=== PATIENT | male | born 1940 | race Caucasian/White ===

== ENCOUNTER 2018-08-31 08:25 | Day surgery (SDC) | payer MEDICARE, OTHER, SELFPAY ==
[2018-08-31 09:00] VITALS: BP 148/79; PULSE 70; RESP 15; TEMP 36.8; O2SAT 100; BMI 36.9
[2018-08-31] MEDS: PROPARACAINE 0.5% OPHTH SOL 2 DROPS EYE-OP (09:05)
[2018-08-31] MEDS: CATARACT EYE COMPOUND (10 DROPS/SYRINGE) 3 DROPS EYE-OP (09:07)
--- NOTE | 2018-08-31 10:07 | P.OP.PRE_ITS ---
Pre-operative Note Interval Note Changes: No
--- NOTE | 2018-08-31 10:07 | PM.PREOP ---
Pre-operative Note Interval Note Changes: No
--- NOTE | 2018-08-31 10:07 | PM.OP.1 ---
Operative Date/Time/Diagnoses Pre-op diagnosis: Nuclear cataract right eye Procedure & Clinicians Procedure: Cataract Surgery Same procedure as scheduled: Yes Surgeon: Bebeto Fisher Anesthesia Type: MAC +/- and Sedation Operative Notes Procedure in detail: Patient brought to the operating suite. Tetracaine drops placed in the right eye. Marking instrument was used to stefany the vertical and horizontal meridian. Patient was prepped and draped in sterile manner. Wire lid speculum was placed in the eye. Betadine drops were placed on the eye. This was irrigated. Lidocaine jelly was placed on the eye. A paracentesis port was created with a side-port blade. 0.1 mL 1% preservative free lidocaine was injected into the anterior chamber. The anterior chamber was deepened with viscoelastic. 2.6 mm keratome was used to create a temporal clear corneal incision. Cystotome and Utrata forceps were used to create continuous tear capsulorrhexis. Balanced salt solution was used to hydro dissect the nucleus. The phacoemulsification handpiece was inserted and the nucleus was removed using the stop and chop technique. The irrigation aspiration handpiece was inserted and the remaining cortex was removed. Anterior chamber was deepened with viscoelastic. An Corey [id number] intraocular lens with a power of 22.5 was injected into the capsular bag. Irrigation aspiration handpiece was inserted and the remaining viscoelastic was removed. The lens was rotated to the 180 degree meridian. Incision was hydrated with balanced salt solution and found to be leak free with pressure with Weck-Mignon sponges. 0.1 mL Vigamox injected anterior chamber. 0.3 mL Kenalog 10 mg was injected subconjunctivally. Lid speculum was removed. The patient left the operating room in excellent condition. Complications: none Condition: stable Disposition: same day surgery
[2018-08-31] MEDS: CHONDROIDTIN/SOD HYALURONATE 1.05 ML SYRINGE INTRAOCULA (10:19)
[2018-08-31] MEDS: MOXIFLOXACIN OPHTH DROPS 3 ML BOTTLE 2 DROPS INJ (10:19)
[2018-08-31] MEDS: LIDOCAINE JELLY 2% 5 ML 1 APPLIC TOP (10:19)
[2018-08-31] MEDS: PHENYLEPHRINE/LIDOCAINE VIAL (OR) 0.2 ML EYE-OP (10:20)
[2018-08-31] MEDS: TRIAMCINOLONE 50 MG/5 ML VIAL INJ (10:20)
[2018-08-31] MEDS: TETRACAINE 0.5% OPHTH DROPS 15 ML 2 DROPS EYE-RIGHT (10:20)
[2018-08-31] MEDS: BALANCED SALT IRRIG SOLN NO.2 500 ML, EPINEPHrine 1 MG IRR (10:21)
[2018-08-31 10:45] VITALS: BP 136/77; PULSE 61; RESP 16; TEMP 36.8; O2SAT 97
== END 2018-08-31 10:48 ==
LOC: OR 08:28
PROVIDERS: PCP Internal Medicine; Visit Provider Ophthalmology
DX: H25.11 Age-related nuclear cataract, right eye (principal); Z86.711 Personal history of pulmonary embolism
CPT/HCPCS: J0171; J2250; J3010; J3301; V2787

== ENCOUNTER 2018-09-07 08:57 | Day surgery (SDC) | payer MEDICARE, OTHER, SELFPAY ==
[2018-09-07 09:36] VITALS: BP 161/78; PULSE 58; RESP 16; TEMP 36.4; O2SAT 100; BMI 36.3
[2018-09-07] MEDS: PROPARACAINE 0.5% OPHTH SOL 2 DROPS EYE-OP (09:45)
[2018-09-07] MEDS: CATARACT EYE COMPOUND (10 DROPS/SYRINGE) 3 DROPS EYE-OP (09:47)
--- NOTE | 2018-09-07 10:35 | PM.PREOP ---
Pre-operative Note Interval Note Changes: No
--- NOTE | 2018-09-07 10:36 | P.OP_ITS ---
Operative Date/Time/Diagnoses Pre-op diagnosis: Nuclear Cataract Left eye Post-op diagnosis: same Procedure & Clinicians Surgeon: Bebeto Fisher Anesthesia Type: MAC +/- and Sedation Operative Notes Procedure in detail: Patient brought to the operating suite. Tetracaine drops placed in the left eye. Patient was prepped and draped in sterile manner. Wire lid speculum was placed in the eye. Betadine drops were placed on the eye. This was irrigated. Lidocaine jelly was placed on the eye. A paracentesis port was created with a side-port blade. 0.1 mL 1% preservative free lidocaine was injected into the anterior chamber. The anterior chamber was deepened with viscoelastic. 2.6 mm keratome was used to create a temporal clear corneal incision. Cystotome and Utrata forceps were used to create continuous tear capsulorrhexis. Balanced salt solution was used to hydro dissect the nucleus. The phacoemulsification handpiece was inserted and the nucleus was removed using the stop and chop technique. The irrigation aspiration handpiece was inserted and the remaining cortex was removed. Anterior chamber was deepened with viscoelastic. An Corey ZCB00 intraocular lens with a power of 22.5 was injected into the capsular bag. Irrigation aspiration handpiece was inserted and the remaining viscoelastic was removed. Incision was hydrated with balanced salt solution and found to be leak free with pressure with Weck- Mignon sponges. 0.1 mL Vigamox injected anterior chamber. 0.3 mL Kenalog 10 mg was injected subconjunctivally. Lid speculum was removed. The patient left the operating room in excellent condition. Complications: none Condition: stable Disposition: same day surgery
--- NOTE | 2018-09-07 10:36 | P.OP.PRE_ITS ---
Pre-operative Note Interval Note Changes: No
[2018-09-07] MEDS: PHENYLEPHRINE/LIDOCAINE VIAL (OR) 0.2 ML EYE-OP (10:49)
[2018-09-07] MEDS: MOXIFLOXACIN OPHTH DROPS 3 ML BOTTLE 2 DROPS INJ (10:50)
[2018-09-07] MEDS: TRIAMCINOLONE 50 MG/5 ML VIAL INJ (10:50)
[2018-09-07] MEDS: LIDOCAINE JELLY 2% 5 ML 1 APPLIC TOP (10:51)
[2018-09-07] MEDS: CHONDROIDTIN/SOD HYALURONATE 1.05 ML SYRINGE INTRAOCULA (10:51)
[2018-09-07] MEDS: BALANCED SALT IRRIG SOLN NO.2 500 ML, EPINEPHrine 1 MG IRR (10:51)
[2018-09-07] MEDS: TETRACAINE 0.5% OPHTH DROPS 15 ML 2 DROPS EYE-LEFT (10:51)
[2018-09-07 11:00] VITALS: BP 171/71; PULSE 58; RESP 20; TEMP 36.6; O2SAT 100
== END 2018-09-07 11:20 | disposition home or self-care (01) ==
LOC: OR 08:59
PROVIDERS: PCP Internal Medicine; Visit Provider Ophthalmology
DX: H25.12 Age-related nuclear cataract, left eye (principal); Z86.711 Personal history of pulmonary embolism; Z79.01 Long term (current) use of anticoagulants
CPT/HCPCS: J0171; J2250; J3010; J3301

== ENCOUNTER → 2020-02-17 10:46 | Outpatient (CLI) | payer MEDICARE, OTHER, SELFPAY ==
[2020-02-17 12:28] LABS: Add Manual Diff / Slide Review NO; Basophils Absolute Auto 0 /uL (0-100); Basophils Percent Auto 0.7 % (0-2); Eosinophils Absolute Auto 100 /uL (0-450); Eosinophils Percent Auto 0.9 % (2-4); Hematocrit 40.4 % (41-53); Hemoglobin 14.2 g/dL (13.5-17.5); Lymphocytes Absolute Auto 1900 /uL (1100-4500); Mean Corpuscular HGB Conc 35.1 % (30-36); Mean Corpuscular Hemoglobin 32.5 PG (26-34); Mean Corpuscular Volume 92.6 fL (80-100); Monocytes Absolute Auto 600 /uL (0-900); Monocytes Percent Auto 8.1 % (3-14); Neutrophils Absolute Auto 4300 /uL (1500-7000); Neutrophils Percent Auto 62.3 % (50-75); Platelet Count 177 X10^3/uL (150-400); Red Blood Cell Count 4.36 X10^6/uL (4.5-5.9); Red Cell Distribution Width 13.8 % (11.6-14.8); White Blood Cell Count 6.9 X10^3/uL (4.5-11.0)
[2020-02-17 13:18] LABS: Aspartate Aminotransferase 32 IU/L (17-59); Blood Urea Nitrogen 13 mg/dL (9-20); Calcium 9.7 mg/dL (8.4-10.2); Carbon Dioxide 26 mmol/L (22-32); Chloride 104 mmol/L (98-107); Cholesterol 105 mg/dL (140-199); Estimated Glomerular Filt Rate > 60.0 mL/min (>60); Glucose 99 mg/dL (80-110); HDL Cholesterol 49 mg/dL (40-60); HEMOLYSIS < 15 (0-50); LDL Cholesterol Calculated 43 mg/dL (<100); Potassium 4.4 mmol/L (3.4-5.1); Sodium 139 mmol/L (137-145); Triglycerides 66 mg/dL (35-150); Uric Acid 6.8 mg/dL (3.5-8.5)
== END ==
PROVIDERS: PCP Internal Medicine; Referring Provider Internal Medicine; Visit Provider Internal Medicine
DX: M10.9 Gout, unspecified (principal); I10 Essential (primary) hypertension; E78.2 Mixed hyperlipidemia
CPT/HCPCS: 36415; 80048; 80061; 84450; 84550; 85025

== ENCOUNTER → 2020-08-21 19:06 | Outpatient (ROUT) | payer MEDICARE, OTHER, SELFPAY ==
[2020-08-21 19:24] LABS: Add Manual Diff / Slide Review NO; Basophils Absolute Auto 100 /uL (0-100); Basophils Percent Auto 1.1 % (0-2); Eosinophils Absolute Auto 100 /uL (0-450); Eosinophils Percent Auto 0.9 % (2-4); Hematocrit 41.9 % (41-53); Hemoglobin 14.4 g/dL (13.5-17.5); Lymphocytes Absolute Auto 1800 /uL (1100-4500); Lymphocytes Percent Auto 29.5 % (25-40); Mean Corpuscular HGB Conc 34.5 % (30-36); Mean Corpuscular Hemoglobin 32.2 PG (26-34); Mean Corpuscular Volume 93.5 fL (80-100); Monocytes Absolute Auto 500 /uL (0-900); Neutrophils Absolute Auto 3800 /uL (1500-7000); Neutrophils Percent Auto 60.5 % (50-75); Platelet Count 181 X10^3/uL (150-400); Red Blood Cell Count 4.48 X10^6/uL (4.5-5.9); White Blood Cell Count 6.2 X10^3/uL (4.5-11.0)
[2020-08-21 19:35] LABS: Aspartate Aminotransferase 34 IU/L (17-59); BUN Creatinine Ratio 16.8 (6-22); Blood Urea Nitrogen 16 mg/dL (9-20); Calcium 9.3 mg/dL (8.4-10.2); Carbon Dioxide 28 mmol/L (22-32); Chloride 105 mmol/L (98-107); Cholesterol 138 mg/dL (140-199); Estimated Glomerular Filt Rate > 60.0 mL/min (>60); Glucose 97 mg/dL (80-110); HDL Cholesterol 67 mg/dL (40-60); HEMOLYSIS < 15 (0-50); LDL Cholesterol Calculated 57 mg/dL (<100); Potassium 4.2 mmol/L (3.4-5.1); Sodium 138 mmol/L (137-145); Triglycerides 70 mg/dL (35-150); Uric Acid 7.1 mg/dL (3.5-8.5)
[2020-08-21 20:14] LABS: Prostate Specific Antigen < 0.064 ng/mL (0.10-4.00)
== END ==
PROVIDERS: PCP Internal Medicine; Visit Provider Internal Medicine
DX: Z85.46 Personal history of malignant neoplasm of prostate (principal); M10.9 Gout, unspecified; I10 Essential (primary) hypertension; E78.2 Mixed hyperlipidemia; I26.99 Other pulmonary embolism without acute cor pulmonale
CPT/HCPCS: 80048; 80061; 84153; 84450; 84550; 85025

== ENCOUNTER 2022-03-11 06:44 | Emergency (ER) | payer MEDICARE, OTHER, SELFPAY ==
[2022-03-11 07:00] VITALS: BP 169/83; PULSE 76; RESP 20; TEMP 36.1; O2SAT 99; BMI 34.7
--- NOTE | 2022-03-11 07:18 | ED_ITS ---
HPI - Skin/Abscess/Foreign Bdy General Chief complaint: Skin/Abscess/Foreign Body Stated complaint: Sores on legs that are infected Time Seen by Provider: 03/11/22 07:06 Source: patient Mode of arrival: Ambulatory Limitations: no limitations History of Present Illness HPI narrative: 82M non smoker on Xarelto presents with sores on both lower extremities that have been present off and on for many months. He states that they are painful and occasionally leak yellowish fluid. He denies systemic symptoms such as fever, chills, nausea or vomiting. He denies any injury, chest pain or shortness of breath. He is not lightheaded, dizzy or weak. He denies any recent travel, medication, or dietary change. He states that occasionally he gets pain in his calves when he walks. He is on Xarelto for pulmonary embo lisms. He states that he was talking with a family friend who had mention that there was in the hospital for sepsis because of leg pain and he came to be evaluated with a concern that this could possibly be what is it affecting him. Related Data Home Medications Medication Instructions Recorded Confirmed allopurinol 100 mg tablet 100 mg PO ##0 08/02/11 rivaroxaban 20 mg tablet (Xarelto) 20 mg PO QDAY ##0 01/05/17 Allergies Allergy/AdvReac Type Severity Reaction Status Date / Time No Known Allergies Allergy Unknown Verified 08/31/18 08:54 [NO KNOWN ALLERGIES] Review of Systems Review of Systems Narrative: GENERAL: Denies chills, fatigue, malaise, fever, sweats. HEENT: Denies sinus pain, ear pain, sore throat, difficulty swallowing, dizziness. RESPIRATORY: Denies dyspnea, cough, wheezing, hemoptysis, sputum. CARDIOVASCULAR: Denies chest pain, palpitations, orthopnea, edema, GASTROINTESTINAL: Denies nausea, vomiting, abdominal pain, diarrhea, constipation, melena. : Denies dysuria, frequency, incontinence, hematuria, urinary retention. MUSCULOSKELETAL: denies weakness, joint pain, or bony pain SKIN: See HPI NEUROLOGIC: Denies weakness, headache, numbness, change in speech, confusion, seizures, incoordination. PSYCHIATRIC: No concerning psychosocial issues. 12 point review of systems is negative except for those stated above Patient History Social History household members: spouse Smoking Status: Never smoker Smoking Status: Never smoker alcohol intake frequency: a few times a week Substance Use Type: does not use Exam Narrative Exam Narrative: GENERAL: [82] year old patient appears stated age. Well-developed patient, in no obvious distress, resting comfortably HEAD: Atraumatic. Normocephalic. EYES: Pupils equal round and reactive. Extraocular motions intact. No scleral icterus. No injection or drainage. ENT: Nose without bleeding, purulent drainage. Throat without erythema, tonsillar hypertrophy or exudate. Airway patent. NECK: Trachea midline. Non tender CARDIOVASCULAR: Regular rate and rhythm without murmurs, gallops, or rubs. RESPIRATORY: Clear to auscultation. Breath sounds equal bilaterally. No wheezes, rales, or rhonchi. GASTROINTESTINAL: Abdomen soft, non-tender, nondistended. EXTREMITIES: No edema or joint tenderness. BACK: Nontender without deformity or crepitance. No flank tenderness. NEURO: AOx3. SKIN: dime sized painful ulceration on lower medial anterior tibias bilaterally with minimal serous drainage and minimal surrounding erythema. No induration, fluctuance, or lymphangitis. No calf, pain, swelling, erythema. Initial Vital Signs Initial Vital Signs: Vital Signs Temperature 97 F L 03/11/22 07:00 Pulse Rate 76 03/11/22 07:00 Respiratory Rate 20 03/11/22 07:00 Blood Pressure 169/83 H 03/11/22 07:00 Pulse Oximetry 99 03/11/22 07:00 Oxygen Delivery Method 03/11/22 07:00 Course Orders Ordered: ED Orders 03/11/22 07:44 US arterial duplex LE BI Stat 03/11/22 07:51 Wound Culture and Gram Stain Stat Vital Signs Vital signs: Vital Signs - 8 hr 03/11/22 07:00 03/11/22 09:18 Temperature 97 F L Pulse Rate 76 87 Respiratory Rate 20 Blood Pressure 169/83 H 135/88 Pulse Oximetry 99 100 Oxygen Delivery Method Room Air Room Air MDM - Skin/Abscess/Foreign Bdy MDM Narrative Medical decision making narrative: Multiple etiologies for patient's symptoms considered including: [Infectious versus vascular versus other. ] Wounds have been present for some time, US ordered to evaluate for possible vascular (though likely chronic). Infectious considered, but thought unlikley given chronicity, will hold on ABX until cultures result Findings and discharge diagnosis discussed with patient/family followed by verbalization of understanding Return precautions discussed with patient/family whom verbalize understanding. Discharge Plan Departure Patient Disposition: Home Clinical Impression: Sore on leg Instructions: How to Wrap Multilayer Compression Bandage for Leg Wounds Activity Restrictions/Additional Instructions: *You have been diagnosed with [ chronic anterior leg wounds. As we discussed there is no obvious infection, also the ultrasounds looking at the blood supply is reassuring. We will wait on culture results to decide if antibiotics would be helpful or not] *What to do: *Please continue to take your regular medications as directed. [ ] New medication prescriptions sent to your pharmacy: [ ] [ ] New medication written as a paper prescription [x ] No new medications given *Please follow up with your primary care provider in 2-3 days, call for an appointment. Let them know you were seen in the Emergency Department and that we ask that you be seen in follow up. We will electronically transmit a record of today's note if your PCP is in our system *If you do not have a primary care provider please contact the [facility] Resource line at [phone]. They will ask some questions about your medical history and help get you set up with a doctor in the community. *Return to Emergency Department if you should have any new, worsening or co ncerning symptoms, such as [fever greater than 101 F, shaking chills, worsening pain, persistent vomiting or other bothersome symptoms] Prescriptions: No Action allopurinol 100 MG tablet 100 mg PO Qty: 0 rivaroxaban [Xarelto] 20 MG tablet 20 mg PO QDAY Qty: 0 Referrals: Cosme Calvo MD [Primary Care Provider] - Visit Report Forms: Patient Portal/API
--- NOTE | 2022-03-11 07:44 | DI.US.S_ITS ---
PROCEDURE: US ARTERIAL DUPLEX LE BI INDICATIONS: ULCERS TECHNIQUE: Color and pulse Doppler interrogation was performed of both lower extremity arterial systems, with image documentation. COMPARISON: None. FINDINGS: Right lower extremity: Common femoral artery: 71 cm/sec, with triphasic flow. Deep femoral artery: 43 cm/sec, with triphasic flow. Proximal superficial femoral artery: 77 cm/sec, with triphasic flow. Mid superficial femoral artery: 88 cm/sec, with biphasic flow. Distal superficial femoral artery: 62 cm/sec, with biphasic flow. Popliteal artery: 42 cm/sec, with biphasic flow. Posterior tibial artery: 40 cm/sec, with biphasic flow. Anterior tibial artery/dorsalis pedis: 30/27 cm/sec, with biphasic flow. Levi-scale imaging description: No visualized plaque. Left lower extremity: Common femoral artery: 83 cm/sec, with triphasic flow. Deep femoral artery: 59 cm/sec, with biphasic flow. Proximal superficial femoral artery: 74 cm/sec, with triphasic flow. Mid superficial femoral artery: 68 cm/sec, with triphasic flow. Distal superficial femoral artery: 53 cm/sec, with triphasic flow. Popliteal artery: 54 cm/sec, with try phase flow. Posterior tibial artery: 43 cm/sec, with biphasic flow. Anterior tibial artery/dorsalis pedis: 38/26 cm/sec, with biphasic flow. Levi-scale imaging description: No visualized plaque IMPRESSION: No hemodynamically significant stenosis. Dictated by: Vannessa Ramos M.D. on 03/11/2022 at 8:50 Approved by: Vannessa Ramos M.D. on 03/11/2022 at 8:51
[2022-03-11 09:18] VITALS: BP 135/88; PULSE 87; O2SAT 100
== END 2022-03-11 09:19 | disposition home or self-care (01) ==
PROVIDERS: Emergency Provider Emergency Medicine; PCP Internal Medicine
DX: L97.929 Non-pressure chronic ulcer of unspecified part of left lower leg with unspecified severity (principal); L97.919 Non-pressure chronic ulcer of unspecified part of right lower leg with unspecified severity; Z79.01 Long term (current) use of anticoagulants
CPT/HCPCS: 87070; 87147; 87205; 93925; 99283

== ENCOUNTER → 2022-04-02 10:19 | Outpatient (CLI) | payer MEDICARE, OTHER, SELFPAY ==
[2022-04-02 10:49] LABS: Hematocrit 39.4 % (41-53); Hemoglobin 13.2 g/dL (13.5-17.5); Mean Corpuscular HGB Conc 33.5 % (30-36); Mean Corpuscular Hemoglobin 31.7 PG (26-34); Mean Corpuscular Volume 94.6 fL (80-100); Platelet Count 150 X10^3/uL (150-400); Red Blood Cell Count 4.16 X10^6/uL (4.5-5.9); Red Cell Distribution Width 15.2 % (11.6-14.8); White Blood Cell Count 5.4 X10^3/uL (4.5-11.0)
[2022-04-02 11:13] LABS: Alanine Aminotransferase 20 IU/L (<50); Albumin 4.1 g/dL (3.5-5.0); Albumin Globulin Ratio 1.5 (1.0-2.8); Alkaline Phosphatase 71 U/L (38-126); Aspartate Aminotransferase 31 IU/L (17-59); BUN Creatinine Ratio 16.3 (6-22); Blood Urea Nitrogen 17 mg/dL (9-20); Calcium 9.1 mg/dL (8.4-10.2); Carbon Dioxide 25 mmol/L (22-32); Chloride 109 mmol/L (98-107); Cholesterol 123 mg/dL (140-199); Estimated Glomerular Filt Rate > 60 mL/min (>60); Globulin 2.8 g/dL (1.7-4.1); Glucose 110 mg/dL (80-110); HDL Cholesterol 55 mg/dL (40-60); HEMOLYSIS < 15 (0-50); LDL Cholesterol Calculated 59 mg/dL (<100); Potassium 4.3 mmol/L (3.4-5.1); Sodium 140 mmol/L (137-145); Total Protein 6.9 g/dL (6.3-8.2); Triglycerides 44 mg/dL (35-150)
[2022-04-02 11:41] LABS: Prostate Specific Antigen < 0.064 ng/mL (0.10-4.00)
[2022-04-02 11:42] LABS: TSH w/ Reflex to FT4 1.75 uIU/mL (0.47-4.68)
== END ==
PROVIDERS: PCP Internal Medicine; Referring Provider Internal Medicine; Visit Provider Internal Medicine
DX: I10 Essential (primary) hypertension (principal); Z85.46 Personal history of malignant neoplasm of prostate; E78.2 Mixed hyperlipidemia; I87.2 Venous insufficiency (chronic) (peripheral); M10.9 Gout, unspecified; Z86.711 Personal history of pulmonary embolism
CPT/HCPCS: 36415; 80053; 80061; 84153; 84443; 85027

== ENCOUNTER → 2022-04-28 10:22 | Outpatient (CLI) | payer MEDICARE, OTHER, SELFPAY ==
[2022-04-28 11:44] LABS: COVID19 -Nasal RAPID Negative (Negative)
== END ==
PROVIDERS: PCP Internal Medicine; Visit Provider Surgery
DX: Z01.812 Encounter for preprocedural laboratory examination (principal); Z20.822 Contact with and (suspected) exposure to COVID-19
CPT/HCPCS: 87635; C9803

== ENCOUNTER 2022-04-29 12:18 | Day surgery (SDC) | payer MEDICARE, OTHER, SELFPAY ==
[2022-04-29 12:29] VITALS: BP 156/83; PULSE 98; RESP 16; TEMP 37; O2SAT 100; BMI 35.1
[2022-04-29] MEDS: LACTATED RINGERS 1,000 ML 200 ML IV (12:45)
--- NOTE | 2022-04-29 13:42 | PM.HP.1 ---
History of Present Illness History of Present Illness Date Patient Seen: 04/29/22 Time Patient Seen: 13:42 Chief complaint: SDC Narrative: The patient presents for colorectal screening. Previous colonoscopy 6 years ago notable for polyps benign.. No personal or family history of colon cancer. On further history denies any recent gastrointestinal symptoms. No nausea, vomiting, abdominal pain, loss of appetite, unexplained weight loss, change in bowel habits, diarrhea, constipation, melena, hematochezia, or bright red blood per rectum. Patient History Medical History Chronic anticoagulation Do not resuscitate Essential hypertension Gout History of prostate cancer History of pulmonary embolism Mixed hyperlipidemia Primary osteoarthritis involving multiple joints Venous insufficiency Family & Social History Social History: household members spouse Tobacco & Substance use: Tobacco type pipe Smoking Status Never smoker alcohol intake frequency a few times a week Substance Use Type does not use Meds Home Medications and Allergies Home Medications Medication Instructions Recorded Confirmed Type losartan 50 mg tablet 50 mg PO DAILY #90 tabs 04/02/22 04/29/22 Rx rivaroxaban 20 mg tablet (Xarelto) 20 mg PO QDAY #90 tabs 04/02/22 04/29/22 Rx rosuvastatin 10 mg tablet 10 mg PO DAILY #90 tabs 04/02/22 04/29/22 Rx Allergies Allergy/AdvReac Type Severity Reaction Status Date / Time No Known Allergies Allergy Unknown Verified 04/29/22 12:51 [NO KNOWN ALLERGIES] Exam Vital Signs (past 8 hours): - 04/29/22 12:29 Temperature 98.6 F Pulse Rate 98 H Respiratory Rate 16 Blood Pressure 156/83 H Pulse Oximetry 100 Oxygen Delivery Method Room Air Oxygen Delivery Method Room Air Narrative Exam Narrative: General adult male alert oriented no acute distress Chest nonlabored respiration Extremities warm well perfused Assessment & Plan Assessment & Plan narrative: The patient requires colorectal screening and colonoscopy is recommended. Technical details were discussed. Risks, benefits, alternatives explained. Risks including but not limited to myocardial infarction, aspiration, bleeding, pain, missed lesion, incomplete examination, need for further radiographic studies, colonic perforation, and need for major abdominal surgery were discussed. All questions were answered to their satisfaction, and they are in agreement with this plan. Time Spent With Patient Critical Care time: I spent a total of [] minutes of critical care time on this patient's care today; this time is exclusive of procedural time.
[2022-04-29] MEDS: fentaNYL 250 MCG/5 ML INJ IV (14:01)
[2022-04-29] MEDS: MIDAZOLAM 5 MG/5 ML VIAL 8 MG IV (14:01)
--- NOTE | 2022-04-29 14:16 | PM.OP.COLON ---
Operative Date/Time/Diagnoses Date of procedure: 04/29/22 Time of procedure: 14:16 Pre-op diagnosis: Personal history of colonic polyps Post-op diagnosis: same Procedure & Clinicians Study performed: Colonoscopy Same procedure as scheduled: Yes Indications: Personal history of colonic polyps, screening colonoscopy Surgeon: Gael Powers Procedure Notes Procedure in detail: Medications: Conscious sedation using 8mg IV midazolam and 250mcg IV of fentanyl The history and physical was performed/updated and the patient is ASA class is 2. The procedure was discussed in detail with the patient. Potential risks complications including infection, bleeding, missed diagnosis, perforation, need for surgery, and were explained. Their questions were answered and informed consent was obtained. Patient was brought to the procedure room and placed standard monitoring equipment. The patient's vital signs were monitored continuously throughout the entire procedure. Prior to starting time-out was performed. The patient was placed in the left lateral recumbent position. Procedural sedation was administered. Examination began with a thorough inspection of the perianal area there was no evidence of fissures, fistulae, external hemorrhoids or cutaneous malignancy. The colonoscopy scope was then placed into the anal canal and was advanced to the cecum, which was identified by the ileocecal valve, the appendiceal orifice and the confluence of the taenia. The scope was then slowly withdrawn examining colon thoroughly in all directions, irrigating it of any residual stool. FINDINGS 1. No masses or polyps 2. Tortuous colon 3. Extensive diverticulosis 4. Internal hemorrhoids The patient tolerated the procedure well. They will be discharged once criteria are met. The prep was of fair quality. The withdrawl time was 6 minutes. The sedation time was 29 minutes. Specimen(s): none sent Complications: none Impression: Diverticulosis Post-procedure Recommendations: High fiber diet Plan for aftercare: No further colonoscopy necessary Disposition: same day surgery
[2022-04-29 14:22] VITALS: BP 125/83; PULSE 100; RESP 19; TEMP 36.2; O2SAT 97
[2022-04-29 14:27] VITALS: BP 152/93; PULSE 96; RESP 22; O2SAT 96
[2022-04-29 14:32] VITALS: BP 127/72; PULSE 90; RESP 21; O2SAT 97
[2022-04-29 14:36] VITALS: BP 142/80; PULSE 81; RESP 15; O2SAT 97
[2022-04-29 14:40] VITALS: BP 132/77; PULSE 84; RESP 15; O2SAT 98
== END 2022-04-29 15:00 | disposition home or self-care (01) ==
PROVIDERS: PCP Internal Medicine; Referring Provider Surgery; Visit Provider Surgery
PROC: 0DJD8ZZ Inspection of Lower Intestinal Tract, Via Natural or Artificial Opening Endoscopic (ICD-10-PCS; CPT 45378; principal; 2022-04-29 13:30)
DX: Z12.11 Encounter for screening for malignant neoplasm of colon (principal); Z86.010 Personal history of colon polyps; K57.30 Diverticulosis of large intestine without perforation or abscess without bleeding; K64.8 Other hemorrhoids
CPT/HCPCS: G0105; 99152; 99153; J2250; J3010

== ENCOUNTER → 2023-04-17 09:35 | Outpatient (CLI) | payer MEDICARE, OTHER, SELFPAY ==
[2023-04-17 10:18] LABS: Hematocrit 37.9 % (41-53); Hemoglobin 13.1 g/dL (13.5-17.5); Mean Corpuscular HGB Conc 34.7 % (30-36); Mean Corpuscular Hemoglobin 32.3 PG (26-34); Mean Corpuscular Volume 93.1 fL (80-100); Platelet Count 147 X10^3/uL (150-400); Red Blood Cell Count 4.07 X10^6/uL (4.5-5.9); Red Cell Distribution Width 14.2 % (11.6-14.8); White Blood Cell Count 6.6 X10^3/uL (4.5-11.0)
[2023-04-17 10:41] LABS: Alanine Aminotransferase 26 IU/L (<50); Albumin 3.7 g/dL (3.5-5.0); Albumin Globulin Ratio 1.4 (1.0-2.8); Alkaline Phosphatase 69 U/L (38-126); Aspartate Aminotransferase 30 IU/L (17-59); BUN Creatinine Ratio 16.7 (6-22); Bilirubin Total 0.9 mg/dL (0.2-1.3); Blood Urea Nitrogen 20 mg/dL (9-20); Calcium 9.1 mg/dL (8.4-10.2); Carbon Dioxide 28 mmol/L (22-32); Chloride 104 mmol/L (98-107); Cholesterol 115 mg/dL (140-199); Estimated Glomerular Filt Rate 59 mL/min (>60); Globulin 2.7 g/dL (1.7-4.1); Glucose 98 mg/dL (80-110); HDL Cholesterol 53 mg/dL (40-60); HEMOLYSIS < 15 (0-50); LDL Cholesterol Calculated 48 mg/dL (<100); Potassium 4.3 mmol/L (3.4-5.1); Sodium 136 mmol/L (137-145); Total Protein 6.4 g/dL (6.3-8.2); Triglycerides 72 mg/dL (35-150)
[2023-04-17 12:11] LABS: Prostate Specific Antigen < 0.064 ng/mL (0.10-4.00)
== END ==
PROVIDERS: PCP Internal Medicine; Referring Provider Internal Medicine; Visit Provider Internal Medicine
DX: E78.2 Mixed hyperlipidemia (principal); Z85.46 Personal history of malignant neoplasm of prostate; I10 Essential (primary) hypertension; Z79.01 Long term (current) use of anticoagulants; Z86.711 Personal history of pulmonary embolism
CPT/HCPCS: 36415; 80053; 80061; 84153; 85027

== ENCOUNTER 2023-08-03 09:58 | Emergency (ER) | payer MEDICARE, OTHER, SELFPAY ==
[2023-08-03] VITALS (10 sets, daily range): BP systolic 130–158; BP diastolic 62–80; PULSE 68–84; RESP 14–24; TEMP 36.6; O2SAT 96–99; BMI 35.1
--- NOTE | 2023-08-03 10:36 | DI.RAD.S_ITS ---
PROCEDURE: XR CHEST 1V INDICATIONS: chest pain TECHNIQUE: One view of the chest was acquired. COMPARISON: None. FINDINGS: Surgical changes and devices: None. Lungs and pleura: Low lung volumes. No dense consolidation or pleural effusion. Prominent appearance of the right hilum. Mediastinum: Normal heart size Bones and chest wall: Degenerative changes. IMPRESSION: Limited single view study. No acute abnormality. Prominent appearance of the right hilum, not well evaluated on radiography due to rotation, possibly overlapping vessels. Dictated by: Mitchell Palomino M.D. on 08/03/2023 at 11:11 Approved by: Mitchell Palomino M.D. on 08/03/2023 at 11:14
[2023-08-03 11:09] LABS: INR 2.7 (0.9-1.3); Prothrombin Time 30.8 SECONDS (10.1-12.7)
[2023-08-03 11:12] LABS: PTT Partial Thromboplastin Tim 49 SECONDS (26-36)
[2023-08-03 11:13] LABS: Add Manual Diff / Slide Review NO; Basophils Absolute Auto 100 /uL (0-100); Eosinophils Absolute Auto 0 /uL (0-450); Eosinophils Percent Auto 0.7 % (2-4); Hematocrit 41.3 % (41-53); Hemoglobin 14.3 g/dL (13.5-17.5); Lymphocytes Absolute Auto 1400 /uL (1100-4500); Lymphocytes Percent Auto 21.9 % (25-40); Mean Corpuscular HGB Conc 34.6 % (30-36); Mean Corpuscular Hemoglobin 32.3 PG (26-34); Mean Corpuscular Volume 93.4 fL (80-100); Monocytes Absolute Auto 600 /uL (0-900); Monocytes Percent Auto 9.9 % (3-14); Neutrophils Absolute Auto 4100 /uL (1500-7000); Neutrophils Percent Auto 66.5 % (50-75); Platelet Count 174 X10^3/uL (150-400); Red Blood Cell Count 4.42 X10^6/uL (4.5-5.9); Red Cell Distribution Width 14.7 % (11.6-14.8); White Blood Cell Count 6.2 X10^3/uL (4.5-11.0)
[2023-08-03 11:14] LABS: Alanine Aminotransferase 33 IU/L (<50); Albumin 4.1 g/dL (3.5-5.0); Albumin Globulin Ratio 1.3 (1.0-2.8); Alkaline Phosphatase 56 U/L (38-126); Aspartate Aminotransferase 39 IU/L (17-59); BUN Creatinine Ratio 19.1 (6-22); Bilirubin Total 0.7 mg/dL (0.2-1.3); Blood Urea Nitrogen 21 mg/dL (9-20); Carbon Dioxide 28 mmol/L (22-32); Chloride 105 mmol/L (98-107); Creatine Kinase 327 U/L (55-170); Estimated Glomerular Filt Rate > 60 mL/min (>60); Globulin 3.2 g/dL (1.7-4.1); Glucose 117 mg/dL (80-110); HEMOLYSIS 22 (0-50); Lipase 127 U/L (23-300); Magnesium 1.8 mg/dL (1.6-2.3); Potassium 4.1 mmol/L (3.4-5.1); Sodium 138 mmol/L (137-145); Total Protein 7.3 g/dL (6.3-8.2)
[2023-08-03 11:25] LABS: Troponin I < 0.012 ng/mL (0.01-0.034)
--- NOTE | 2023-08-03 12:40 | PC.NURSE ---
Patient denies having any symptoms of chest pain, shortness of breath, lightheaded or dizziness, palpations. He states he got a new watch a week ago which has been telling him he is in atrial fibrillation. Pt has not had any symptoms and states he is not sure how long he has actually been in afib.
--- NOTE | 2023-08-03 12:53 | PC.NURSE ---
Patient reports having confusion today while at work on the [employer] walking between offices. Pt felt dizzy, nauseated and sweating. He thought his blood sugar might be low and went to get his lunch out and found himself opening the broom closet at work instead of going to the fridge. Pt told his coworker to keep an eye on him, and while eating patient passed out and had a LOC for aproximately 45seconds per EMS. Pt had a similar event over a year ago while living in the . He got up to urinate at night and fell over, passing out. He did go to the ER by ambulance at that time and the tests did not come up with anything. Since then he has moved here for the past 3 months and needs to find another primary care provider.
--- NOTE | 2023-08-03 13:23 | ED_ITS ---
HPI - Arrhythmia/Palpitations General Chief Complaint: Arrhythmia/Palpitations Stated Complaint: doc sent for ekg Time Seen by Provider: 08/03/23 13:23 Source: patient Mode of arrival: Ambulatory Limitations: no limitations History of Present Illness HPI narrative: 83-year-old male chronically anticoagulants Xarelto for prior pulmonary emboli, hypertension dyslipidemia who presents with concern for atrial fibrillation. Patient states he got an Apple watch 10 days ago it has been telling him regularly and with increasing frequency that he has atrial fibrillation. 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 Patient presents today because it has been increasingly frequent. He states he has no other symptoms, he has no sense of palpitations, no chest pain, no shortness of breath, no lightheadedness or passing out, no nausea no vomiting, no swelling in extremities no other GI or urinary symptoms. He states he has been on Xarelto for about 8-10 years after having a pulmonary emboli. He states he takes it regularly, he takes a statin and losartan daily. Patient states he is had prior appendectomy and cholecystectomy but no other cardiac interventions or surgeries. He is never been told he had any cardiac arrhythmias. No known drug allergies. No tobacco, alcohol or illicit. His primary care is Dr. Calvo. Related Data Previous Rx's Medication Instructions Recorded losartan 50 mg tablet 50 mg PO DAILY #90 tabs 04/16/23 rivaroxaban 20 mg tablet (Xarelto) 20 mg PO QDAY #90 tabs 04/16/23 rosuvastatin 10 mg tablet 10 mg PO DAILY #90 tabs 04/16/23 metoprolol tartrate 25 mg tablet 12.5 mg (1/2 x 25 mg) PO BID #30 08/03/23 tabs Allergies Allergy/AdvReac Type Severity Reaction Status Date / Time No Known Allergies Allergy Unknown Verified 08/03/23 10:35 [NO KNOWN ALLERGIES] Review of Systems Review of Systems ROS Unobtainable: All systems reviewed & are unremarkable except as noted in HPI and below Patient History Medical History Primary osteoarthritis involving multiple joints Do not resuscitate History of prostate cancer Gout Mixed hyperlipidemia Essential hypertension Chronic anticoagulation History of pulmonary embolism Venous insufficiency Social History details: (Armida Romero 01/2023), 2 children household members: spouse Smoking Status: Never smoker Smoking Status: Never smoker alcohol intake frequency: a few times a week Substance Use Type: does not use Exam Narrative Exam Narrative: GENERAL: Alert and oriented x three, well-nourished male in no acute distress. HEENT: Head normocephalic, atraumatic, EOMI, pupils reactive, face symmetric, moist mucous membranes NECK: Supple, full range of motion CARDIOVASCULAR: Irregularly irregular rate and rhythm without murmurs, rubs or gallops. No JVD. No edema bilateral lower extremities. RESPIRATORY: Breath sounds equal bilaterally, no wheezes rales or rhonchi. ABDOMEN: Soft, nontender. Normoactive bowel sounds all 4 quadrants. No guarding or rebound, rigidity, no mass : No CVA tenderness EXTREMITIES: Normal range of motion, no clubbing or edema. Neurovascularly intact NEUROLOGICAL: Cranial nerves II through XII grossly intact. Moving all extremities SKIN: Warm, dry, no petechiae, no rashes or lesions. Initial Vital Signs Initial Vital Signs: Vital Signs Temperature 97.9 F 08/03/23 10:32 Pulse Rate 68 08/03/23 10:32 Respiratory Rate 14 08/03/23 10:32 Blood Pressure 146/74 H 08/03/23 10:32 Pulse Oximetry 99 08/03/23 10:32 Oxygen Delivery Method Room Air 08/03/23 10:32 Course Orders Ordered: ED Orders 08/03/23 10:36 XR chest 1V Stat 08/03/23 10:40 Complete Blood Count AUTO DIFF Stat Comprehensive Metabolic Panel Stat Lipase Stat Magnesium Stat PTT Partial Thromboplastin Amarjit Stat Prothrombin Time INR Stat Troponin & CK Cardiac Panel Stat 08/03/23 10:59 EKG-12 Lead Stat Discontinued Medications Aspirin (Aspirin 81 Mg Chew Tab) 324 mg PO NOW ONE Stop: 08/03/23 10:36 Last Admin: 08/03/23 10:46 Dose: Not Given Documented By: AMV Vital Signs Vital signs: Vital Signs - 8 hr 08/03/23 12:17 08/03/23 12:18 08/03/23 12:18 Pulse Rate 83 84 Respiratory Rate 21 24 Blood Pressure 158/80 H Pulse Oximetry 96 97 Oxygen Delivery Method 08/03/23 12:30 08/03/23 12:30 08/03/23 12:45 Pulse Rate 80 76 Respiratory Rate 23 22 Blood Pressure 136/75 Pulse Oximetry 98 98 Oxygen Delivery Method 08/03/23 12:45 08/03/23 13:00 08/03/23 13:00 Pulse Rate 77 Respiratory Rate 21 Blood Pressure 133/71 134/74 Pulse Oximetry 97 Oxygen Delivery Method 08/03/23 13:15 08/03/23 13:15 08/03/23 13:30 Pulse Rate 73 76 Respiratory Rate 23 22 Blood Pressure 142/67 H Pulse Oximetry 99 97 Oxygen Delivery Method 08/03/23 13:30 08/03/23 13:45 08/03/23 13:45 Pulse Rate 82 Respiratory Rate 23 Blood Pressure 136/66 130/62 Pulse Oximetry 97 Oxygen Delivery Method Room Air 08/03/23 14:00 08/03/23 14:00 Pulse Rate 83 Respiratory Rate 23 Blood Pressure 149/72 H Pulse Oximetry 98 Oxygen Delivery Method Room Air MDM - Arrhythmia/Palpitations Lab Data 08/03/23 10:40 08/03/23 10:40 Labs: Lab Results 08/03/23 Range/Units 10:40 WBC 6.2 (4.5-11.0) X10^3/uL RBC 4.42 L (4.5-5.9) X10^6/uL Hgb 14.3 (13.5-17.5) g/dL Hct 41.3 (41-53) % MCV 93.4 (80-100) fL MCH 32.3 (26-34) PG MCHC 34.6 (30-36) % RDW 14.7 (11.6-14.8) % Plt Count 174 (150-400) X10^3/uL Neut % (Auto) 66.5 (50-75) % Lymph % (Auto) 21.9 L (25-40) % Mellette % (Auto) 9.9 (3-14) % Eos % (Auto) 0.7 L (2-4) % Baso % (Auto) 1.0 (0-2) % Neut # (Auto) 4100 (2179-4084) /uL Lymph # (Auto) 1400 (1352-1343) /uL Mellette # (Auto) 600 (0-900) /uL Eos # (Auto) 0 (0-450) /uL Baso # (Auto) 100 (0-100) /uL PT 30.8 H (10.1-12.7) SECONDS INR 2.7 H (0.9-1.3) APTT 49 H (26-36) SECONDS Sodium 138 (137-145) mmol/L Potassium 4.1 (3.4-5.1) mmol/L Chloride 105 (98-107) mmol/L Carbon Dioxide 28 (22-32) mmol/L BUN 21 H (9-20) mg/dL Creatinine 1.10 (0.66-1.25) mg/dL Estimated GFR > 60 (>60) mL/min BUN/Creatinine Ratio 19.1 (6-22) Glucose 117 H (80-110) mg/dL Calcium 10.0 (8.4-10.2) mg/dL Magnesium 1.8 (1.6-2.3) mg/dL Total Bilirubin 0.7 (0.2-1.3) mg/dL AST 39 (17-59) IU/L ALT 33 (<50) IU/L Alkaline Phosphatase 56 (38-126) U/L Total Creatine Kinase 327 H (55-170) U/L Troponin I < 0.012 (0.01-0.034) ng/mL Total Protein 7.3 (6.3-8.2) g/dL Albumin 4.1 (3.5-5.0) g/dL Globulin 3.2 (1.7-4.1) g/dL Albumin/Globulin Ratio 1.3 (1.0-2.8) Lipase 127 (23-300) U/L Imaging Data Chest x-ray: Radiologist's Impresson: [address] [address] XRay Report Signed Patient: Calvin Saxena MR#: [id number] : 1940 Acct:[id number] Age/Sex: 83 / M Date of Service: 08/03/23 Loc: ED Accession Number: [id number] Procedure: XR chest 1V Ordering Provider: Amy Jolley D.O. PROCEDURE: XR CHEST 1V INDICATIONS: chest pain TECHNIQUE: One view of the chest was acquired. COMPARISON: None. FINDINGS: Surgical changes and devices: None. Lungs and pleura: Low lung volumes. No dense consolidation or pleural effusion. Prominent appearance of the right hilum. Mediastinum: Normal heart size Bones and chest wall: Degenerative changes. IMPRESSION: Limited single view study. No acute abnormality. Prominent appearance of the right hilum, not well evaluated on radiography due to rotation, possibly overlapping vessels. Dictated by: Mitchell Palomino M.D. on 08/03/2023 at 11:11 Approved by: Mitchell Palomino M.D. on 08/03/2023 at 11:14 ECG Data Attestation: I personally reviewed and interpreted this ECG as follows: Prior ECG tracings: not available for review Interpretation: AFib rate of 74 QRS of 140 QTC of 416, right bundle-branch block. Patient does not have priors for comparison. MDM Narrative Medical decision making narrative: 83-year-old male who does not appear to be in atrial fibrillation he is rate controlled with no significant vital sign changes otherwise. CBC is appropriate, creatinine electrolytes are appropriate CK is 327 LFTs are negative troponins negative chest x-ray is negative. Patient's INR is 2.7 he is appropriately anticoagulated on Xarelto chronically for pulmonary emboli. States it has been 10 years discussed could do cardioversion but he is rate controlled asymptomatic when hold off and have him just follow-up. We will give him a prescription for beta-katelyn and Malachi develops some tachycardia but felt appropriate for discharge home to follow up with primary care or Cardiology at his preference. Patient feels very comfortable with this plan and agrees to hold off on any interventions at this time. Discharge Plan Departure Patient Disposition: Home Clinical Impression: Atrial fibrillation Instructions: DI for Atrial Fibrillation Activity Restrictions/Additional Instructions: You are in atrial fibrillation today you have been rate controlled throughout your stay. Follow-up with your primary care if you prefer Cardiology contact is also included. Continue your home medications as prescribed including your Xarelto this is protective against stroke. Prescription for a low-dose beta-katelyn is included you can start this if you start to develop tachycardia or faster heart rate. You are currently rate controlled and do not have to take this medication. Prescription sent to [facility] in [place] Please return for new or worsening chest pain, shortness of breath, lightheadedness or passing out, fast heart rate, if you are having new palpitations, new swelling of extremities, nausea, vomiting diaphoresis or other new or concerning changes. Prescriptions: New metoprolol tartrate 25 mg tablet 12.5 mg PO BID Qty: 30 0RF No Action losartan 50 mg tablet 50 mg PO DAILY Qty: 90 3RF Xarelto 20 mg tablet 20 mg PO QDAY Qty: 90 3RF rosuvastatin 10 mg tablet 10 mg PO DAILY Qty: 90 3RF Referrals: Cosme Calvo MD [Primary Care Provider] - Grzegorz Cesar MD [Physician] - Stand Alone Forms: Patient Portal/API
== END 2023-08-03 14:33 | disposition home or self-care (01) ==
PROVIDERS: Emergency Provider Emergency Medicine; PCP Internal Medicine
DX: I48.91 Unspecified atrial fibrillation (principal); Z86.711 Personal history of pulmonary embolism; Z79.01 Long term (current) use of anticoagulants
CPT/HCPCS: 36415; 71045; 80053; 82550; 83690; 83735; 84484; 85025; 85610; 85730; 93005; 99283; 99284

== ENCOUNTER → 2023-08-26 06:36 | Outpatient (CLI) | payer MEDICARE, OTHER, SELFPAY ==
--- NOTE | 2023-08-26 06:36 | DI.ECHO.S_ITS ---
[facility] +---------+ : : [address] : : : : [id number] : : : : Phone: [phone]+ Echocardiogram Report + + :Name: SHARONA OSBORN Study Date: 08/26/2023 Height: 69 in : :[facility] ReadingLocation: Weight: 240 lb : : Gender: Male BSA: 2.2 m2 : :: 1940 Age: 83 yrs BP: 159/89 mmHg: :Reason For Study: ATRIAL FIBRILLATION : :Ordering Physician: NATA, : :REBA Performed By: Jerilyn العلي : :Referring: REBA PEACE : + + Interpretation Summary The ejection fraction is estimated to be 60-65%. Diastolic function could not be accurately assessed due to atrial fibrillation. The left atrium is moderately dilated. The right ventricle is mildly dilated. The right ventricular systolic function is normal. There is mild to moderate mitral regurgitation. There is mild aortic regurgitation. There is mild tricuspid regurgitation. The right ventricular systolic pressure is estimated to be at least 33 mmHg based on an estimated right atrial pressure of 3 mm Hg. Compared to the prior study dated 12/08/2012, no significant change. Procedure: A two-dimensional transthoracic echocardiogram with color flow and Doppler was performed. The study quality was technically adequate. Comparison is made with the echocardiogram of 12/08/2012. The patient was in atrial fibrillation with heart rates between 68-90 bpm during the exam. Left Ventricle: The left ventricle is normal in size and wall thickness. The ejection fraction is estimated to be 60-65%. Diastolic function could not be accurately assessed due to atrial fibrillation. Right Ventricle: The right ventricle is mildly dilated. The right ventricular systolic function is normal. Atria: The left atrium is moderately dilated. Right atrial size is normal. There is no Doppler evidence for an interatrial shunt. Mitral Valve: The mitral valve leaflets appear borderline thickened, but open well. There is mild to moderate mitral regurgitation. Aortic Valve: The aortic valve is trileaflet. The aortic valve opens well. The aortic valve is mildly calcified. There is no aortic valve stenosis. There is mild aortic regurgitation. Tricuspid Valve: The tricuspid valve is normal in structure and function. There is mild tricuspid regurgitation. The right ventricular systolic pressure is estimated to be at least 33 mmHg based on an estimated right atrial pressure of 3 mm Hg. Pulmonic Valve: The pulmonic valve leaflets are thin and pliable; valve motion is normal. There is trace pulmonic regurgitation. Great Vessels: The aortic root is normal size. The dimensions of the ascending aorta are normal. The IVC is of normal diameter and collapses greater than 50% with a sniff. This suggests a low right atrial pressure of 3 mm Hg. Pericardium/ Pleura There is no pericardial effusion. There is no pleural effusion. MMode/2D Measurements & Calculations LVIDd: 5.0 cm LVOT diam: 2.2 cm LVIDs: 3.4 cm Ao root diam: 3.5 cm FS: 32.5 % asc Aorta Diam: 2.9 cm EPSS: 0.79 cm Ao Arch Diam (Prox Trans): 3.1 cm IVSd: 0.82 cm LVPWd: 1.0 cm LV pinto. diameter/BSA (cm/m^2): 2.2 LV sys. diameter/BSA (cm/m^2): 1.5 LA A2 area: 25.4 cm2 RA long axis: 5.7 cm LA A4 area: 24.6 cm2 RA area: 19.5 cm2 LA length (vol): 6.0 cm RA vol: 56.7 ml LA vol: 89.3 ml RA : 25.4 ml/m2 LA vol index: 40.0 ml/m2 IVC diam: 2.0 cm RVD1 (basal): 4.2 cm TAPSE: 1.7 cm Doppler Measurements & Calculations Ao V2 max: 174.5 cm/sec LVOT Max Winston: 76.9 cm/sec Ao V2 mean: 116.7 cm/sec LV V1 max P.4 mmHg Ao max P.2 mmHg LV V1 VTI: 17.2 cm Ao mean P.4 mmHg PRASAD(I,D): 1.9 cm2 Ao V2 VTI: 33.5 cm PRASAD(V,D): 1.6 cm2 sev ratio: 0.51 PRASAD indexed to BSA (cm^2/m^2): 0.85 AI P1/2t: 675.5 msec AI dec slope: 180.4 cm/sec2 MV E max winston: 95.2 cm/sec TR max winston: 273.7 cm/sec MV A max winston: 0.71 cm/sec TR max P.0 mmHg MV E/A: 133.5 PA V2 max: 105.8 cm/sec Med Peak E' Winston: 8.0 cm/sec PA V2 mean: 72.2 cm/sec E/E' med: 12.0 PA mean P.3 mmHg Lat Peak E' Winston: 12.4 cm/sec PA pr(Accel): 41.3 mmHg E/E' lat: 7.7 E/e' average: 9.8 MV dec time: 0.24 sec SV(LVOT): 63.5 ml Reading Physician:11:39 AM
== END ==
PROVIDERS: PCP Internal Medicine; Referring Provider Internal Medicine; Visit Provider Internal Medicine
DX: I48.20 Chronic atrial fibrillation, unspecified (principal); I51.7 Cardiomegaly; I08.3 Combined rheumatic disorders of mitral, aortic and tricuspid valves
CPT/HCPCS: 93306

== ENCOUNTER → 2023-09-30 08:07 | Outpatient (CLI) | payer MEDICARE, OTHER, SELFPAY ==
[2023-09-30 09:06] LABS: Cholesterol 121 mg/dL (140-199); HDL Cholesterol 61 mg/dL (40-60); LDL Cholesterol Calculated 50 mg/dL (<100); Triglycerides 48 mg/dL (35-150)
[2023-09-30 09:39] LABS: Thyroid Stimulating Hormone 2.03 uIU/mL (0.47-4.68)
== END ==
LOC: LAB 08:08
PROVIDERS: PCP Internal Medicine; Referring Provider Internal Medicine; Visit Provider Internal Medicine
DX: E78.2 Mixed hyperlipidemia (principal); I48.20 Chronic atrial fibrillation, unspecified
CPT/HCPCS: 36415; 80061; 84443

== ENCOUNTER → 2024-04-18 14:11 | Outpatient (CLI) | payer MEDICARE, OTHER, SELFPAY ==
[2024-04-18 14:54] LABS: Hematocrit 39.3 % (41-53); Hemoglobin 13.3 g/dL (13.5-17.5); Mean Corpuscular HGB Conc 33.9 % (30-36); Mean Corpuscular Hemoglobin 32.5 PG (26-34); Mean Corpuscular Volume 95.6 fL (80-100); Platelet Count 159 X10^3/uL (150-400); Red Blood Cell Count 4.11 X10^6/uL (4.5-5.9); Red Cell Distribution Width 14.1 % (11.6-14.8); White Blood Cell Count 7.1 X10^3/uL (4.5-11.0)
[2024-04-18 14:58] LABS: Alanine Aminotransferase 25 IU/L (<50); Albumin Globulin Ratio 1.7 (1.0-2.8); Alkaline Phosphatase 72 U/L (38-126); Aspartate Aminotransferase 31 IU/L (17-59); BUN Creatinine Ratio 22.8 (6-22); Bilirubin Total 0.7 mg/dL (0.2-1.3); Blood Urea Nitrogen 29 mg/dL (9-20); Calcium 9.4 mg/dL (8.4-10.2); Carbon Dioxide 24 mmol/L (22-32); Chloride 109 mmol/L (98-107); Estimated Glomerular Filt Rate 55 mL/min (>60); Globulin 2.3 g/dL (1.7-4.1); Glucose 94 mg/dL (80-110); HEMOLYSIS < 15 (0-50); Potassium 4.7 mmol/L (3.4-5.1); Sodium 140 mmol/L (137-145); Total Protein 6.3 g/dL (6.3-8.2)
== END ==
PROVIDERS: PCP Internal Medicine; Referring Provider Internal Medicine; Visit Provider Internal Medicine
DX: I48.20 Chronic atrial fibrillation, unspecified (principal)
CPT/HCPCS: 36415; 80053; 85027

== ENCOUNTER → 2024-07-13 08:06 | Outpatient (CLI) | payer MEDICARE, OTHER, SELFPAY ==
--- NOTE | 2024-07-13 08:37 | DI.RAD.S_ITS ---
PROCEDURE: XR KUB INDICATIONS: Hematuria TECHNIQUE: One view of the abdomen acquired. COMPARISON: None. FINDINGS: Surgical changes and devices: Surgical clips projecting over the pelvis and right upper quadrant. Bowel: Bowel gas pattern is normal. Soft tissues: Serpiginous calcifications in the left upper quadrant may represent calcified splenic artery. No suspicious abdominal calcifications. Visualized solid organ contours appear normal in size. Bones: No suspicious bony lesions. IMPRESSION: 1. No definite renal stones are seen. Consider CT for further evaluation. 2. Serpiginous calcifications in the left upper quadrant, may represent calcified splenic artery. Dictated by: Malachi Miller M.D. on 07/13/2024 at 17:53 Approved by: Malachi Miller M.D. on 07/13/2024 at 17:54
== END ==
PROVIDERS: PCP Internal Medicine; Referring Provider Nurse Practitioner Family; Visit Provider Nurse Practitioner Family
DX: R30.0 Dysuria (principal); R31.9 Hematuria, unspecified; R93.5 Abnormal findings on diagnostic imaging of other abdominal regions, including retroperitoneum
CPT/HCPCS: 74018; 87086

== ENCOUNTER → 2024-10-10 14:17 | Outpatient (CLI) | payer MEDICARE, OTHER, SELFPAY ==
--- NOTE | 2024-10-10 14:21 | DI.RAD.S_ITS ---
PROCEDURE: XR CHEST 2V INDICATIONS: dyspnea TECHNIQUE: 2 views of the chest were acquired. COMPARISON: [facility], CR, XR CHEST 1V, 08/03/2023, 10:39. FINDINGS: Surgical changes and devices: None. Lungs and pleura: Lungs are clear. No pleural effusions or pneumothorax. Mediastinum: Mediastinal contours are normal. Heart size is normal. Bones and chest wall: No suspicious bony abnormalities. Soft tissues appear unremarkable. IMPRESSION: No acute pulmonary process. Dictated by: Vannessa Ramos M.D. on 10/10/2024 at 16:11 Approved by: Vannessa Ramos M.D. on 10/10/2024 at 16:11
[2024-10-10 15:07] LABS: Hematocrit 38.7 % (41-53); Hemoglobin 13.1 g/dL (13.5-17.5); Mean Corpuscular HGB Conc 33.7 % (30-36); Mean Corpuscular Hemoglobin 32.5 PG (26-34); Mean Corpuscular Volume 96.4 fL (80-100); Platelet Count 161 X10^3/uL (150-400); Red Blood Cell Count 4.02 X10^6/uL (4.5-5.9); Red Cell Distribution Width 14.7 % (11.6-14.8); White Blood Cell Count 7.2 X10^3/uL (4.5-11.0)
[2024-10-10 15:25] LABS: Alanine Aminotransferase 29 IU/L (<50); Albumin 4.1 g/dL (3.5-5.0); Albumin Globulin Ratio 1.8 (1.0-2.8); Alkaline Phosphatase 73 U/L (38-126); Aspartate Aminotransferase 34 IU/L (17-59); BUN Creatinine Ratio 19.5 (6-22); Bilirubin Total 0.7 mg/dL (0.2-1.3); Blood Urea Nitrogen 26 mg/dL (9-20); Calcium 9.8 mg/dL (8.4-10.2); Carbon Dioxide 24 mmol/L (22-32); Chloride 109 mmol/L (98-107); Cholesterol 109 mg/dL (140-199); Estimated Glomerular Filt Rate 52 mL/min (>60); Globulin 2.3 g/dL (1.7-4.1); Glucose 99 mg/dL (80-110); HDL Cholesterol 60 mg/dL (40-60); HEMOLYSIS < 15 (0-50); LDL Cholesterol Calculated 35 mg/dL (<100); Potassium 4.3 mmol/L (3.4-5.1); Sodium 140 mmol/L (137-145); Total Protein 6.4 g/dL (6.3-8.2); Triglycerides 69 mg/dL (35-150)
[2024-10-10 15:55] LABS: TSH w/ Reflex to FT4 2.02 uIU/mL (0.47-4.68)
[2024-10-10 16:00] LABS: Prostate Specific Antigen < 0.064 ng/mL (0.10-4.00)
== END ==
LOC: LAB 14:18 → RAD 14:21
PROVIDERS: PCP Internal Medicine; Referring Provider Internal Medicine; Visit Provider Internal Medicine
DX: I48.20 Chronic atrial fibrillation, unspecified (principal); E78.2 Mixed hyperlipidemia; Z85.46 Personal history of malignant neoplasm of prostate
CPT/HCPCS: 36415; 71046; 80053; 80061; 84153; 84443; 85027

== ENCOUNTER → 2024-11-12 08:55 | Outpatient (CLI) | payer MEDICARE, OTHER, SELFPAY ==
[2024-11-12 10:21] LABS: BUN Creatinine Ratio 28.1 (6-22); Blood Urea Nitrogen 38 mg/dL (9-20); Calcium 10.2 mg/dL (8.4-10.2); Carbon Dioxide 26 mmol/L (22-32); Chloride 108 mmol/L (98-107); Estimated Glomerular Filt Rate 51 mL/min (>60); Glucose 98 mg/dL (80-110); Sodium 141 mmol/L (137-145)
[2024-11-12 10:22] LABS: HEMOLYSIS 67 (0-50)
== END ==
PROVIDERS: PCP Internal Medicine; Referring Provider Internal Medicine; Visit Provider Internal Medicine
DX: I42.9 Cardiomyopathy, unspecified (principal)
CPT/HCPCS: 36415; 80048

== ENCOUNTER → 2025-04-26 07:48 | Outpatient (CLI) | payer MEDICARE, OTHER, SELFPAY ==
[2025-04-26 08:27] LABS: Hematocrit 38.6 % (41-53); Hemoglobin 13.3 g/dL (13.5-17.5); Mean Corpuscular HGB Conc 34.3 % (30-36); Mean Corpuscular Hemoglobin 32.9 PG (26-34); Mean Corpuscular Volume 95.7 fL (80-100); Platelet Count 132 X10^3/uL (150-400)
[2025-04-26 08:53] LABS: Alanine Aminotransferase 18 IU/L (<50); Albumin 4.1 g/dL (3.5-5.0); Albumin Globulin Ratio 1.6 (1.0-2.8); Alkaline Phosphatase 68 U/L (38-126); Blood Urea Nitrogen 26 mg/dL (9-20); Calcium 9.4 mg/dL (8.4-10.2); Carbon Dioxide 21 mmol/L (22-32); Chloride 106 mmol/L (98-107); Cholesterol 108 mg/dL (140-199); Estimated Glomerular Filt Rate 55 mL/min (>60); Globulin 2.5 g/dL (1.7-4.1); Glucose 100 mg/dL (70-99); HDL Cholesterol 58 mg/dL (40-60); HEMOLYSIS 16 (0-50); Potassium 4.1 mmol/L (3.4-5.1); Sodium 137 mmol/L (137-145); Total Protein 6.6 g/dL (6.3-8.2); Triglycerides 41 mg/dL (35-150)
[2025-04-26 09:24] LABS: Prostate Specific Antigen < 0.064 ng/mL (0.10-4.00)
== END ==
PROVIDERS: PCP Internal Medicine; Referring Provider Internal Medicine; Visit Provider Internal Medicine
DX: I48.20 Chronic atrial fibrillation, unspecified (principal); E78.2 Mixed hyperlipidemia; Z85.46 Personal history of malignant neoplasm of prostate
CPT/HCPCS: 36415; 80053; 80061; 84153; 85027

== ENCOUNTER → 2025-07-20 15:44 | Outpatient (CLI) | payer MEDICARE, OTHER, SELFPAY ==
--- NOTE | 2025-07-20 15:45 | DI.RAD.S_ITS ---
PROCEDURE: XR SHOULDER RT MIN 2V INDICATIONS: right shoulder pain, no trauma TECHNIQUE: 3 views of the shoulder were acquired. COMPARISON: None. FINDINGS: Bones: No fractures or dislocations. Severe glenohumeral joint space narrowing and marginal osteophytosis and moderate hypertrophic acromioclavicular arthropathy. No suspicious bony lesions. Visualized ribs appear intact. Soft tissues: No suspicious soft tissue calcifications. IMPRESSION: Degenerative change of the glenohumeral and acromioclavicular joints without evidence of acute bony abnormality. Dictated by: Vikash Elizabeth M.D. on 07/24/2025 at 7:33 Approved by: Vikash Elizabeth M.D. on 07/24/2025 at 7:34
== END ==
PROVIDERS: PCP Internal Medicine; Referring Provider Internal Medicine; Visit Provider Internal Medicine
DX: M25.511 Pain in right shoulder (principal)
CPT/HCPCS: 73030

== ENCOUNTER → 2025-08-17 10:29 | Outpatient (CLI) | payer MEDICARE, OTHER, SELFPAY ==
[2025-08-17 11:49] LABS: Blood Urea Nitrogen 29 mg/dL (9-20); Calcium 10.0 mg/dL (8.4-10.2); Carbon Dioxide 26 mmol/L (22-32); Chloride 106 mmol/L (98-107); Estimated Glomerular Filt Rate 56 mL/min (>60); Glucose 106 mg/dL (70-99); HEMOLYSIS < 15 (0-50); Potassium 4.3 mmol/L (3.4-5.1); Sodium 139 mmol/L (137-145)
== END ==
PROVIDERS: PCP Internal Medicine; Referring Provider Internal Medicine; Visit Provider Internal Medicine
DX: I50.32 Chronic diastolic (congestive) heart failure (principal)
CPT/HCPCS: 36415; 80048